=== PATIENT | female | born 1995 | race African-American/Black ===

== ENCOUNTER 2023-05-17 23:51 | Inpatient (IN) | payer MEDICAID ==
[~2023-05-17] VITALS: Ht 154.9 cm; Wt 93.4 kg
[2023-05-18] MEDS ORDERED: WITCH HAZEL-GLYCERIN PAD TOP PRN (01:00)
[2023-05-18] MEDS ORDERED: LACTATED RINGER'S 1,000 ML IV SCH (01:00)
[2023-05-18] MEDS ORDERED: LIDOCAINE 2%HCL (LOCAL ANESTH.) INJ 20ML MDV IJ PRN (01:00)
[2023-05-18] MEDS ORDERED: PROMETHAZINE HCL 25 MG/ML 1ML IV PRN (01:00)
[2023-05-18] MEDS ORDERED: PHISODERM TOP SOLN 240ML BTL TOP PRN (01:00)
[2023-05-18] MEDS ORDERED: DERMOPLAST 60ML BOTTLE TOP PRN (01:00)
[2023-05-18] MEDS ORDERED: OXYTOCIN 20 UNT in SODIUM CHLORIDE 0.9% 1,000 ML IV ONE (01:15)
[2023-05-18] MEDS ORDERED: TERBUTALINE SULFATE 1 MG/ML 1ML VIAL SC PRN (01:15)
[2023-05-18] MEDS ORDERED: LACT. RINGERS/OXYTOCIN 20UNITS 1,000 ML IV SCH (01:15)
[2023-05-18] MEDS ORDERED: LACT. RINGERS/OXYTOCIN 20UNITS 500 ML IV ONE ×2 (01:15→09:30)
[2023-05-18 01:54] LABS: Basophils # (auto) 0 10 ^3/uL (0-0.2); Basophils % (auto) 0.4 % (0.0-2.0); Eosinophils # (auto) 0.1 10 ^3/uL (0-0.8); Eosinophils % (auto) 0.7 % (0.0-7.0); Hematocrit 39.6 % (36.0-46.0); Hemoglobin 12.8 g/dL (12.2-16.2); Lymphocytes # (auto) 2.3 10 ^3/uL (0.4-5.4); Lymphocytes % (auto) 23.3 % (10.0-50.0); Mean Corpuscular Hemoglobin 27.9 pg (28.0-32.0); Mean Corpuscular Hgb Conc. 32.2 g/dL (32.0-36.0); Mean Corpuscular Volume 86.6 fL (80.0-100.0); Monocytes # (auto) 1.1 10 ^3/uL (0-1.3); Monocytes % (auto) 10.6 % (0.0-12.0); Neutrophils # (auto) 6.4 10 ^3/uL (1.6-8.6); Nucleated Red Blood Cells % 0.3 %; Red Blood Cells 4.57 10^6/uL (4.0-5.20); Red Cell Distribution Width 15.3 % (11.8-14.3); White Blood Cell 9.9 10^3/uL (4.4-10.8)
[2023-05-18 02:12] LABS: INR 0.92 (0.9-1.15); Partial Thromboplastin Time 27.6 SEC (24.5-34.5); Prothrombin Time 9.7 sec (9.3-11.8)
[2023-05-18 02:19] LABS: Alanine Aminotransferase 13 U/L (7-40); Alkaline Phosphatase 218 U/L (46-116); Anion Gap 10 (5-15); Aspartate Aminotransferase 12 U/L (13-40); BUN/Creatinine Ratio 10.2 (10.0-20.0); Bilirubin, Total 0.2 mg/dL (0.2-1.0); Blood Urea Nitrogen 5 mg/dL (9-23); Calcium 9.4 mg/dL (8.7-10.4); Carbon Dioxide 20 mmol/L (20-30); Chloride 104 mmol/L (98-107); Glucose 91 mg/dL (74-106); Sodium 134 mmol/L (136-145); Uric Acid 4.4 mg/dL (3.1-7.8)
[2023-05-18 02:20] LABS: Total Protein 7.1 g/dL (5.7-8.2)
[2023-05-18 02:21] LABS: Protein, Urine 15.1 mg/dL (0.0-11.9)
[2023-05-18 02:23] LABS: Amphetamine Screen, Urine Neg (NEGATIVE); Barbiturate Scree,Urine Neg (NEGATIVE); Benzodiazephine Screen, Urine Neg (NEGATIVE); Cocaine Screen, Urine Neg (NEGATIVE); Creatinine, Urine 45.73 mg/dL (30.0-125.0); Opiate Scree,Urine Neg (NEGATIVE); Urine Protein/Creatinine Ratio 0.33
[2023-05-18 02:24] LABS: Cannabinoid Screen, Urine Neg (NEGATIVE); Phencyclidine Screen, Urine Neg (NEGATIVE); Urine Bacteria NONE SEEN /hpf (None Seen); Urine Blood Negative /uL (Negative); Urine Clarity Clear (Clear); Urine Color Colorless (Yellow); Urine Protein, UAD Negative (Negative); Urine Specific Gravity 1.013 (1.001-1.035); Urine Urobilinogen Normal (Negative); Urine WBC 1 /hpf (0 - 5)
[2023-05-18] MEDS ORDERED: ROPIVACAINE HCL 100 ML ONE (04:58)
[2023-05-18] MEDS ORDERED: LIDOCAINE 1%-Mpf/Epinephrine 1:200,000 30ml VIAL IJ ONE (05:00)
[2023-05-18] MEDS ORDERED: LIDOCAINE HCL 2 %PF INJ 10ML AMP IJ ONE (05:00)
[2023-05-18] MEDS ORDERED: ePHEDrine SULFATE 50 MG/ML AMP IV ONE (05:00)
[2023-05-18] MEDS ORDERED: LACTATED RINGER'S 1,000 ML IV ONE (05:00)
[2023-05-18] MEDS ORDERED: miSOPROStol 100 mcg TAB ONE ×2 (08:21→08:24)
[2023-05-18] MEDS ORDERED: miSOPROStol 100 mcg TAB SL PRN (09:30)
[2023-05-18] MEDS ORDERED: miSOPROStol 100 mcg TAB PR PRN (09:30)
[2023-05-18] MEDS ORDERED: ONDANSETRON ODT 4 MG TAB PO PRN (10:45)
[2023-05-18 10:50] VITALS: BP 143/75; PULSE 120; TEMP 98.8; O2SAT 97
[2023-05-18] MEDS: IBUPROFEN 600 MG TAB PO PRN ×2 (14:07→22:09)
[2023-05-18 15:30] VITALS: BP 125/87; PULSE 98; TEMP 98.8; O2SAT 97
[2023-05-18] MEDS: ACETAMINOPHEN 325 MG TAB PO PRN (17:32)
[2023-05-18 19:17] VITALS: BP 126/68; PULSE 97; RESP 18; TEMP 98; O2SAT 96
[2023-05-18] MEDS ORDERED: DOCUSATE SOD 100 MG CAP PO SCH (22:00)
[2023-05-18 22:45] VITALS: BP 130/76; PULSE 95; RESP 17; TEMP 98.7; O2SAT 97
[2023-05-19 03:15] VITALS: BP 124/74; PULSE 89; RESP 17; TEMP 98.8; O2SAT 96
[2023-05-19] MEDS: IBUPROFEN 600 MG TAB PO PRN ×2 (04:41→11:07)
[2023-05-19] MEDS: ACETAMINOPHEN 325 MG TAB PO PRN (05:30)
[2023-05-19 07:00] VITALS: BP 101/59; PULSE 93; RESP 17; TEMP 98.1; O2SAT 97
[2023-05-19] MEDS ORDERED: PREN1TAB71 OR (07:19)
[2023-05-21 06:06] LABS: RPR Non Reactive (Non Reactive)
[2023-05-21 19:06] LABS: Treponema pallidum Ab (FTA-Ab) Non Reactive (Non Reactive)
== END 2023-05-19 11:54 | disposition home or self-care (01) | DRG 560 ==
LOC: UNDOADMOB 23:51 → LDRP 23:51 → OBSVTOIN 05-18 00:45 → INTOOBSV 05-18 00:45 → OBSVTOIN 05-18 00:59 → LDRP 05-18 00:59
PROVIDERS: ADMIT Obstetrics & Gynecology; ATTEND Obstetrics & Gynecology
PROC: 10E0XZZ Delivery of Products of Conception, External Approach (ICD-10-PCS; principal; 2023-05-18)
PROC: 00HU33Z Insertion of Infusion Device into Spinal Canal, Percutaneous Approach (ICD-10-PCS; 2023-05-18)
PROC: 10907ZC Drainage of Amniotic Fluid, Therapeutic from Products of Conception, Via Natural or Artificial Opening (ICD-10-PCS; 2023-05-18)
PROC: 0W8NXZZ Division of Female Perineum, External Approach (ICD-10-PCS; 2023-05-18)
PROC: 3E0R3BZ Introduction of Anesthetic Agent into Spinal Canal, Percutaneous Approach (ICD-10-PCS; 2023-05-18)
DX: O77.0 Labor and delivery complicated by meconium in amniotic fluid (principal); Z37.0 Single live birth; E66.01 Morbid (severe) obesity due to excess calories; O69.81X0 Labor and delivery complicated by cord around neck, without compression, not applicable or unspecified; O99.214 Obesity complicating childbirth; Z3A.39 39 weeks gestation of pregnancy
CPT/HCPCS: 36415; 59025; 59409; 62282; 80053; 80307; 81001; 81002; 82570; 84156; 84550; 85025; 85610; 85730; 86592; 86850; 86900; 86901; 94760; 94762; 96360; 96361; 96365; 96366; G0378; J2590

== ENCOUNTER 2025-04-24 23:35 | Inpatient (IN) | payer MEDICAID ==
[~2025-04-24] VITALS: Ht 154.9 cm; Wt 81.6 kg
[2025-04-24 07:00] VITALS: RESP 17; O2SAT 100
[~2025-04-24 23:35] MED LIST: PREN1TAB71 OR
[2025-04-24] MEDS ORDERED: LIDOCAINE 2%HCL (LOCAL ANESTH.) INJ 20ML MDV ONE (23:43)
[2025-04-24] MEDS ORDERED: OXYTOCIN 10UNIT/ML 1ML VIAL ONE (23:45)
[2025-04-24] MEDS ORDERED: LACT. RINGERS/OXYTOCIN 20UNITS 1,000 ML IV ONE (23:45)
[2025-04-25] VITALS (19 sets, daily range): BP systolic 106–155; BP diastolic 50–97; PULSE 78–125; RESP 16–18; TEMP 97.9–98.1; O2SAT 97–100
[2025-04-25] MEDS ORDERED: WITCH HAZEL-GLYCERIN PAD TOP PRN (00:15)
[2025-04-25] MEDS ORDERED: DERMOPLAST 60ML BOTTLE TOP PRN (00:15)
[2025-04-25] MEDS ORDERED: LACTATED RINGER'S 1,000 ML IV SCH (00:15)
[2025-04-25] MEDS ORDERED: PHISODERM TOP SOLN 240ML BTL TOP PRN (00:15)
[2025-04-25] MEDS: hydrALAZINE HCL 20 MG/ML VL IV PRN (00:44)
[2025-04-25 01:39] LABS: Cannabinoid Screen, Urine Neg (NEGATIVE)
[2025-04-25 01:45] LABS: Amphetamine Screen, Urine Pos (NEGATIVE); Barbiturate Scree,Urine Neg (NEGATIVE); Benzodiazephine Screen, Urine Neg (NEGATIVE); Cocaine Screen, Urine Neg (NEGATIVE); Opiate Scree,Urine Neg (NEGATIVE); Phencyclidine Screen, Urine Neg (NEGATIVE)
[2025-04-25 01:52] LABS: Hematocrit 31.3 % (36.0-46.0); Hemoglobin 9.7 g/dL (12.2-16.2); Mean Corpuscular Hemoglobin 23.8 pg (28.0-32.0); Mean Corpuscular Volume 76.3 fL (80.0-100.0); Nucleated Red Blood Cells % 0.1 %
[2025-04-25 01:52] LABS: Urine Amorphous Crystal FEW /hpf (None Seen); Urine Protein, UAD 2+ (Negative)
[2025-04-25 02:08] LABS: Alanine Aminotransferase 11 U/L (7-40); Albumin 3.6 g/dL (3.2-4.8); Anion Gap 13 (5-15); Bilirubin, Total 0.4 mg/dL (0.2-1.0); Calcium 9.2 mg/dL (8.7-10.4); Chloride 107 mmol/L (98-107); Glucose 85 mg/dL (74-106); Potassium 3.5 mmol/L (3.5-5.1); Sodium 138 mmol/L (136-145); Total Protein 7.2 g/dL (5.7-8.2)
[2025-04-25 02:18] LABS: INR 0.95 (0.9-1.15); Partial Thromboplastin Time 28.7 SEC (24.5-34.5); Prothrombin Time 10.1 sec (9.3-11.8)
[2025-04-25 02:33] LABS: Alkaline Phosphatase 241 U/L (46-116); BUN/Creatinine Ratio 7.9 (10.0-20.0); Blood Urea Nitrogen < 5 mg/dL (9-23); Carbon Dioxide 18 mmol/L (20-31)
[2025-04-25] MEDS: MAGNESIUM SULFATE 100 ML IV ONE (02:37)
[2025-04-25] MEDS: OXYTOCIN 10UNIT/ML 1ML VIAL IM ONE (02:42)
[2025-04-25] MEDS: LACT. RINGERS/OXYTOCIN 20UNITS 500 ML IV ONE ×2 (02:44→03:16)
[2025-04-25] MEDS: LACTATED RINGER'S 1,000 ML IV SCH (02:46)
[2025-04-25] MEDS: LIDOCAINE 2%HCL (LOCAL ANESTH.) INJ 20ML MDV IJ PRN (02:47)
[2025-04-25 03:04] LABS: Protein, Urine 156.0 mg/dL (1-14)
[2025-04-25] MEDS: MAGNESIUM SULFATE 40MG/ML 1,000 ML IV SCH (03:04)
--- NOTE | 2025-04-25 08:08 | DVHDS2 ---
Discharge Summary Date of Admission Apr 24, 2025 at 23:35 Date of Discharge: Apr 25, 2025 Admitting Diagnosis Patient is status post spontaneous vaginal delivery complicated by hemorrhage requiring D and C and intrauterine catheter. Labs/Diagnostic Data: Laboratory Results Test 04/25/25 06:30 04/25/25 00:50 04/24/25 23:50 Magnesium Lvl (Mg Sulfate Therapy) 3.99 mg/dL (4.0-7.1) White Blood Count 11.8 10^3/uL (4.4-10.8) Red Blood Count 4.10 10^6/uL (4.0-5.20) Hemoglobin 9.7 g/dL (12.2-16.2) Hematocrit 31.3 % (36.0-46.0) Mean Corpuscular Volume 76.3 fL (80.0-100.0) Mean Corpuscular Hemoglobin 23.8 pg (28.0-32.0) Mean Corpuscular Hemoglobin Concent 31.2 g/dL (32.0-36.0) Red Cell Distribution Width 17.8 % (11.8-14.3) Platelet Count 361 10^3/uL (140-450) Mean Platelet Volume 7.5 fL (6.9-10.8) Neutrophils (%) (Auto) 82.0 % (37.0-80.0) Lymphocytes (%) (Auto) 9.6 % (10.0-50.0) Monocytes (%) (Auto) 8.0 % (0.0-12.0) Eosinophils (%) (Auto) 0.1 % (0.0-7.0) Basophils (%) (Auto) 0.3 % (0.0-2.0) Neutrophils # (Auto) 9.7 10 ^3/uL (1.6-8.6) Lymphocytes # (Auto) 1.1 10 ^3/uL (0.4-5.4) Monocytes # (Auto) 0.9 10 ^3/uL (0-1.3) Eosinophils # (Auto) 0 10 ^3/uL (0-0.8) Basophils # (Auto) 0 10 ^3/uL (0-0.2) Nucleated Red Blood Cells 0.1 % Prothrombin Time 10.1 sec (9.3-11.8) Prothrombin Time INR 0.95 (0.9-1.15) Activated Partial Thromboplast Time 28.7 SEC (24.5-34.5) Sodium Level 138 mmol/L (136-145) Potassium Level 3.5 mmol/L (3.5-5.1) Chloride Level 107 mmol/L (98-107) Carbon Dioxide Level 18 mmol/L (20-31) Anion Gap 13 (5-15) Blood Urea Nitrogen < 5 mg/dL (9-23) Creatinine 0.63 mg/dL (0.550-1.02) Glomerular Filtration Rate Calc 125 mL/min (>90) BUN/Creatinine Ratio 7.9 (10.0-20.0) Serum Glucose 85 mg/dL (74-106) Uric Acid 7.1 mg/dL (3.1-7.8) Calcium Level 9.2 mg/dL (8.7-10.4) Magnesium Level 1.7 mg/dL (1.6-2.6) Total Bilirubin 0.4 mg/dL (0.2-1.0) Aspartate Amino Transferase (AST) 33 U/L (13-40) Alanine Aminotransferase (ALT) 11 U/L (7-40) Alkaline Phosphatase 241 U/L (46-116) Total Protein 7.2 g/dL (5.7-8.2) Albumin 3.6 g/dL (3.2-4.8) Treponema pallidum Antibody Non-reactive (Negative) Hepatitis B Surface Antigen Negative (Negative) Hepatitis C Antibody Negative (Negative) HIV (1&2) Antibody Deferred (Negative) Urine Color Light-yellow (Yellow) Urine Clarity Clear (Clear) Urine pH 6.5 (5.0-9.0) Urine Specific Hershey 1.008 (1.001-1.035) Urine Protein 2+ (Negative) Urine Ketones Negative (Negative) Urine Blood 1+ /uL (Negative) Urine Nitrite Negative (Negative) Urine Bilirubin Negative (Negative) Urine Urobilinogen Normal mg/dL (Negative) Urine Leukocyte Esterase Negative /uL (Negative) Urine RBC 1 /hpf (0 - 4) Urine Microscopic WBC 3 /HPF (0-5) Urine Squamous Epithelial Cells Few /hpf (<5) Urine Amorphous Crystals Few /hpf (None Seen) Urine Bacteria None seen /hpf (None Seen) Urine Creatinine 74.27 mg/dL (30.0-125.0) Urine Protein/Creatinine Ratio 2.10 Urine Glucose Normal mg/dL (Normal) Urine Total Protein 156.0 mg/dL (1-14) Urine Opiates Screen Neg (NEGATIVE) Urine Fentanyl Screen Neg (NEGATIVE) Urine Barbiturates Screen Neg (NEGATIVE) Urine Phencyclidine Screen Neg (NEGATIVE) Urine Amphetamines Screen Pos (NEGATIVE) Urine Benzodiazepines Screen Neg (NEGATIVE) Urine Cocaine Screen Neg (NEGATIVE) Urine Cannabinoids Screen Neg (NEGATIVE) Other Laboratory Tests 04/25/25 00:50 Brief Hx & Hospital Course: Patient underwent an followed by D and C for hemorrhage as well as intrauterine catheter placement was removed 04 24 with good hemostasis. Operations or Procedures Suction D&C . Condition at Discharge: Good Final Diagnosis/Problems List Status post complicated by hemorrhage Discharge Disposition: Home Discharge Instruct/Medications Diet: Regular Activity: Light activity (Pelvic rest 6 weeks) Activity comment: Pelvic rest 6 weeks shower on Follow Up/Referral: 2 week wound check primary Ob physician Medications: Resume home med Miscellaneous Medications Vit W/ Ferrous Fumara (Pnv Plus Multivi), 1 OR, (Reported) Discharge Statement: "Patient was advised to return to the ER or call 911 if any headaches, dizziness, shortness of breath, chest pain, abdominal pain, bleeding, fevers, or worsening of medical condition. Patient was counseled about treatment plan, medications, possible side effects, patientverbalized understanding. All questions were answered to the best of my ability. This discharge took greater then 30 minutes in planning, reviewing documentation, counseling the patient, and discussing with other team members." ASSESSMENT ASSESSMENT Assessment Visit Coding OBGYN Date of Service: Apr 25, 2025 Billing Provider: EMI QUEZADA DO HEALTH AND SAFETY REPRESENTATIVE Common Visit Codes: [id number] INP/OBS CARE(HIGH), 81313-YSG/OBS SAME DATE (LOW), 31718-BVF/OBS SAME DATE (MOD) HEALTH AND SAFETY REPRESENTATIVE Procedure Codes: [id number] OB CARE,VAG DELIVERY EMI QUEZADA DO Apr 25, 2025 08:08
--- NOTE | 2025-04-25 10:16 | DVHHP2 ---
OB CC & HPI Date Date of Admission: Apr 24, 2025 Patient Identification: : 2 Para: 2 EDC: Apr 25, 2025 EGA: Unknown estimated 37-6/7 weeks no care delivered at home Chief Complaints: Reason for admission: other (Patient delivered at home and arrives in the car with placenta still attached to the uterus and the in mother's arms her drove RN.) Other reason for admission: at home be BOA Past Medical History Cardiac: No pertinent Hx Pulmonary: No pertinent Hx Central Nervous System: No pertinent Hx GI: No pertinent Hx Hemotology/Oncology: No pertinent Hx Hepatobiliary: No pertinent Hx Psychiatric: No pertinent Hx Musculoskeletal: No pertinent Hx Rheumotologic: No pertinent Hx Infectious Disease: No peritnent Hx ENT: No pertinent Hx Renal/: No pertinent Hx Endocrine: No pertinent Hx Dermatology: No pertinent Hx Past Surgical History: No pertinent Hx OB History OB History Care: None Other Concerns: Positive drug screen on arrival amphetamine Allergies: Coded Allergies: NO KNOWN ALLERGIES (Unverified , 10/25/15) Home Meds Reported Medications Vit W/ Ferrous Fumara (PNV PLUS MULTIVI) Plus Tab, 1 OR, TAB 05/19/23 Current Medications Current Medications Medications (Trade) Dose Ordered Sig/Jose Route PRN Reason Start Time Stop Time Status Last Admin Lactated Ringer's 1,000 ml @ 125 mls/hr Q8H IV 04/25/25 00:15 Witch Laurita (Tucks) 1 pad PRN PRN TOP PERINEAL AREA DISCOMFORT 04/25/25 00:15 Sodium Lauryl Sulfate (Phisoderm) 240 ml PRN PRN TOP PERINEAL AREA DISCOMFORT 04/25/25 00:15 Benzocaine (Dermoplast) 1 applic PRN PRN TOP PERINEAL AREA DISCOMFORT 04/25/25 00:15 Lidocaine HCl (Xylocaine) 20 ml ONCE PRN IJ PERINEAL AREA DISCOMFORT 04/25/25 00:15 04/25/25 02:47 Hydralazine HCl (Apresoline Injection) 5 mg Q20MP PRN IV SBP>160 or DBP>105 04/25/25 00:30 04/25/25 01:21 Lactated Ringer's 1,000 ml @ 75 mls/hr [id number] IV 04/25/25 02:15 04/25/25 02:46 Magnesium Sulfate 1,000 ml @ 50 mls/hr Q20H IV 04/25/25 02:15 04/25/25 03:04 Labetalol HCl (Normodyne Tablet) 100 mg Q12HR PO 04/25/25 10:00 Family & Social History Family/Social History Blood Type: Unknown Rubella: unknown RPR/VDRL: Unknown GBS Status: Unknown HBsAG: Unknown Review of Systems Constitutional: No symptom reported Ears, Nose, & Throat: No symptom reported Eyes: No symptom reported Pulmonary/Respiratory: No symptom reported Cardiovascular: No symptom reported Gastrointestinal: No symptom reported Genitourinary: No symptom reported Musculoskeletal: No symptom reported Skin: No symptom reported Psychiatric: No symptom reported Endocrine: No symptom reported Hemotologic/Lymphatic: No symptom reported OB Admission Exam Physical Exam Vitals: Vital Signs Date Time Temp Pulse Resp B/P (MAP) Pulse Ox O2 Delivery O2 Flow Rate FiO2 04/25/25 09:03 16 100 Room Air 04/25/25 01:21 170/94 OB Plan Plan Admitting Diagnosis: BOA 37 + weeks Plan: Other (Supportive care) Visit Coding OBGYN Date of Service: Apr 25, 2025 Billing Provider: EMI QUEZADA DO HELPER MARBLE FINISHER Common Visit Codes: [id number] INP/OBS CARE(HIGH), 78236-XKN/OBS SAME DATE (LOW), 17759-FKJ/OBS SAME DATE (MOD) HELPER MARBLE FINISHER Procedure Codes: [id number] DEL INCLUDING EMI QUEZADA DO Apr 25, 2025 10:16
[2025-04-25] MEDS: LABETALOL HCL 200 MG TAB PO SCH (12:30)
[2025-04-25] MEDS ORDERED: hydrALAZINE HCL 20 MG/ML VL IV ONE (21:10)
[2025-04-28 06:06] LABS: Chlamydia Trachomatis, NAA Negative (Negative); Neisseria gonorrhoeae, NAA Negative (Negative)
== END 2025-04-25 21:11 | disposition left against medical advice (07) | DRG 548 ==
LOC: LDRP 23:35
PROVIDERS: ADMIT Obstetrics & Gynecology; ATTEND Obstetrics & Gynecology
PROC: 10D17ZZ Extraction of Products of Conception, Retained, Via Natural or Artificial Opening (ICD-10-PCS; principal; 2025-04-24)
DX: Z39.0 Encounter for care and examination of mother immediately after delivery (principal); O72.1 Other immediate postpartum hemorrhage; Z53.29 Procedure and treatment not carried out because of patient's decision for other reasons
CPT/HCPCS: 36415; 59409; 80053; 80307; 81001; 82570; 83735; 84156; 84550; 85025; 85610; 85730; 86703; 86762; 86780; 86803; 86850; 86900; 86901; 87340; 87389; 94760; 96365; 96372; G0378; J2590